=== PATIENT | female | born 1995 | race Caucasian/White ===

== ENCOUNTER 2017-09-25 08:19 | Emergency (ER) | payer BC ==
[~2017-09-25] VITALS: Ht 172.7 cm; Wt 52.2 kg
[2017-09-25] MEDS ORDERED: LORAZEPAM 1 MG TABLET ONE (09:51)
[2017-09-25] MEDS: LORAZEPAM 1 MG TABLET PO ONE (09:53)
--- NOTE | 2017-09-25 09:57 | NUR ---
Patient discharged to home in stable condition. Written and verbal after care instructions given. Patient verbalizes understanding of instruction.
== END 2017-09-25 09:58 | disposition home or self-care (01) ==
LOC: ER 08:29
DX: R00.2 Palpitations (principal); F12.10 Cannabis abuse, uncomplicated; F12.90 Cannabis use, unspecified, uncomplicated; K21.9 Gastro-esophageal reflux disease without esophagitis; Z88.0 Allergy status to penicillin; Z88.1 Allergy status to other antibiotic agents
CPT/HCPCS: 80305; 84703-TC; A4606